=== PATIENT | male | born 1975 | race Caucasian/White ===

== ENCOUNTER 2016-08-07 14:16 | Emergency (ER) | payer SELFPAY ==
--- NOTE | 2016-08-07 15:37 | ER Document Report ---
HPI - HPI Patient complains to provider of: right shoulder pain Onset: Other - 3 weeks Onset/Duration: Persistent Quality of pain: Achy Severity: Severe Pain Level: 4 Context: Patient presents to the emergency department with complaints of right shoulder pain for the past 3 weeks. 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 He used a machine to go under the shingles/roof and nate his shoulder. He reports pain with movement. He reports pain at night when laying on that side. Reports unable to lift his arm above his shoulder without c/o pain. He reports history of shoulder pain years ago when he played sports. He denies other symptoms such as fever vomiting diarrhea. Patient is right-hand dominant. Associated Symptoms: None Exacerbated by: Movement Relieved by: Denies Similar symptoms previously: Yes Recently seen / treated by doctor: No - DERM Skin Color: Normal Past Medical History - General Information source: Patient - Social History Smoking Status: Current Every Day Smoker Cigarette use (# per day): Yes Frequency of alcohol use: None Drug Abuse: None Occupation: greg Lives with: Family Family History: Reviewed & Not Pertinent Patient has suicidal ideation: No Patient has homicidal ideation: No - Past Medical History Cardiac Medical History: Reports: Hx Heart Attack - October 2013, Hx Hypertension Renal/ Medical History: Denies: Hx Peritoneal Dialysis Past Surgical History: Reports: Hx Cardiac Catheterization, Hx Orthopedic Surgery - left ankle - Immunizations Hx Diphtheria, Pertussis, Tetanus Vaccination: Yes Vertical Provider Document - CONSTITUTIONAL Agree With Documented VS: Yes Exam Limitations: No Limitations General Appearance: WD/WN, Mild Distress - winces when lifting right arm - INFECTION CONTROL TRAVEL OUTSIDE OF THE [place] IN LAST 30 DAYS: No - HEENT HEENT: Atraumatic, Normocephalic - NECK Neck: Normal Inspection, Supple - RESPIRATORY Respiratory: Breath Sounds Normal, No Respiratory Distress O2 Sat by Pulse Oximetry: 98 - CARDIOVASCULAR Cardiovascular: Regular Rate - MUSCULOSKELETAL/EXTREMETIES Musculoskeletal/Extremeties: Tender - right shoulder ttp, c/o pain with active movement, reports not as much pain with passive, +arc and + drop test, good radial pulse, brisk cap refill, no obvious deformity - NEURO Level of Consciousness: Awake, Alert, Appropriate - DERM Integumentary: Warm, Dry Adult Front & Back Diagram: 1 - c/o pain Course - Re-evaluation Re-evalutation: 08/07/16 15:46 Patient was instructed on possible rotator cuff injury. He was instructed on the importance of follow-up with orthopedics for evaluation. He was instructed on Percocet for the pain at night. He was also advised rest. He verbalized understanding to all instructions. - Vital Signs Vital signs: Temp Pulse Resp BP Pulse Ox 98.8 F 68 136/72 H 98 08/07/16 14:21 08/07/16 14:21 08/07/16 14:21 08/07/16 14:21 Discharge - Discharge Clinical Impression: Elevated blood pressure reading Right shoulder pain Qualifiers: Chronicity: acute Qualified Code(s): M25.511 - Pain in right shoulder Condition: Stable Disposition: HOME, SELF-CARE Instructions: Oral Narcotic Medication ([facility]), Rotator Cuff Injury ([facility]), Ice Packs ([facility]) Additional Instructions: *You have been evaluated for shoulder pain, suspect rotator cuff injury, elevated blood pressure reading *Rest/Ice packs *Follow up with orthopedics for evaluation-call for an appointment *Take medication as prescribed *Return to ED for worsening condition, changes, needs Monitor your blood pressure. Your blood pressure was elevated today. This may be because you were anxious, in pain or because you need medication. It is important to follow up with your primary care provider for full evaluation. Prescriptions: Oxycodone HCl/Acetaminophen [Percocet 5-325 mg Tablet] 1 - 2 tab PO ASDIR PRN # 15 tablet PRN Reason: Forms: Elevated Blood Pressure, Return to Work Referrals: [facility] [Provider Group] - Follow up in 3-5 days
[2016-08-07 15:54] VITALS: BP 132/73
== END 2016-08-07 15:52 | disposition home or self-care (01) ==
LOC: ER 14:16
DX: M25.511 Pain in right shoulder (principal); R03.0 Elevated blood-pressure reading, without diagnosis of hypertension; F17.210 Nicotine dependence, cigarettes, uncomplicated
CPT/HCPCS: 99283